=== PATIENT | female | born 1995 | race Caucasian/White ===

== ENCOUNTER 2017-01-06 13:13 | Emergency (ER) | payer SELFPAY ==
--- NOTE | 2017-01-06 14:06 | Emergency Department Report ---
Chief Complaint: Headache Stated Complaint: HEADACHE/DIZZINESS Time Seen by Provider: 01/06/17 13:55 - HPI History of Present Illness: Patient here reports that she has headache and dizziness and occasionally seen some spotting from her eyes. She said that she went to [facility], [place] 4 days ago and age are some blood work on her and that she developed a headache after they did the blood work. She never called her went back to the clinic. She does not know what her lab work was. She says she's had some headache in the past but they've been not that bad but she said this headache is located at the front of her head on both sides and she said that it's worse than the previous headaches that she had an she's having dizziness also. She has no history of migraine or treatments for her headache. She denies any head injury or trauma. She also said that she is having some pain at the back of her neck to the side and when asked, she said it feels stiff. Pain is 6 out of 10 to her head. Denies any fever or chills. Denies any sinus problems. Denies any chest pain or shortness of breath. Patient said that she has a history of anemia because she has very painful periods. She also said when she ever. She has heavy bleeding. Last menstrual cycle was 01/05/2017. She says she also has something in her uterus that is 5 cm but she doesn't know the name. Denies any vaginal bleeding or abdominal pain at present - ROS Review of Systems: All systems are negative unless stated in HPI above - Exam Vital Signs: Vital Signs 01/06/17 13:35 Temperature 98.8 F Pulse Rate 72 Respiratory 18 Rate Blood Pressure 102/48 O2 Sat by Pulse 100 Oximetry Physical Exam: Gen.: This is a 21-year-old female well-nourished well-developed in no acute distress. Head: Normocephalic/atraumatic Mini neurological exam: GCS of 15, no facial drooping noted. Speech is clear and fluid, normal gait, ambulate without any difficulties. No facial drooping. Patient is alert and oriented 3. Neck: Patient with full range of motion to neck with no C-spine tenderness. no adenopathy MSE screening note: Focused history and physical exam performed. Due to findings the following was ordered: ED Medical Decision Making - Medical Decision Making MDM: Patient screened by provider in triage area. Appropriate protocol initiated and patient to be seen in main ED by ED Disposition for MSE Condition: Stable
[2017-01-06 14:42] LABS: Anion Gap 16 mmol/L; BUN/Creatinine Ratio 15; Blood Urea Nitrogen 6 mg/dL (7-17); Calcium 8.9 mg/dL (8.4-10.2); Carbon Dioxide 25 mmol/L (22-30); Chloride 104.3 mmol/L (98-107); Glucose 85 mg/dL (65-100); Potassium 3.9 mmol/L (3.6-5.0); Sodium 141 mmol/L (137-145)
[2017-01-06 14:43] LABS: Hematocrit 33.2 % (30.3-42.9); Hemoglobin 10.3 gm/dl (10.1-14.3); Mean Corpuscular HGB Conc 31 % (30-34); Mean Corpuscular Volume 75 fl (79-97); Platelet Count 329 K/mm3 (140-440); Red Blood Count 4.43 M/mm3 (3.65-5.03); Red Cell Distribution Width 17.2 % (13.2-15.2); White Blood Count 8.9 K/mm3 (4.5-11.0)
[2017-01-06 14:48] LABS: Mean Corpuscular Hemoglobin 23 pg (28-32)
[2017-01-06 16:17] LABS: Bacteria,Urine 2+ /HPF (Negative); Bilirubin,Urine NEG (Negative); Blood,Urine SM (Negative); Ketones,Urine NEG (Negative); Leukocyte Esterase,Urine TR (Negative); Mucus,Urine 1+ /HPF; Nitrite,Urine NEG (Negative); Protein,Urine <15 mg/dL mg/dL (Negative); Urobilinogen,Urine < 2.0 mg/dL (<2.0)
--- NOTE | 2017-01-06 17:43 | Cat Scan Report ---
FINAL REPORT PROCEDURE: CT CERVICAL SPINE WO CON TECHNIQUE: Computerized tomography of the cervical spine was performed from the skull base to T1 without contrast material. HISTORY: neck pain and stiffness COMPARISON: No prior studies are available for comparison. FINDINGS: Cervical lordosis is preserved. No arthritic changes are seen. There is no subluxation. No prevertebral edema or C-spine fracture is seen. No disc herniations are seen. IMPRESSION: No significant abnormality.
--- NOTE | 2017-01-06 17:43 | Cat Scan Report ---
FINAL REPORT PROCEDURE: CT HEAD WO CONTRAST TECHNIQUE: Computerized tomography of the head was performed without contrast material. HISTORY: headache COMPARISON: No prior studies are available for comparison. FINDINGS: The visualized portions of the paranasal sinuses are clear. Mastoid air cells are clear. There is no calvarial fracture. There is no hydrocephalus. No acute intracranial hemorrhage or mass effect is seen. There is no evidence of acute CVA. IMPRESSION: No abnormalities are seen.
[2017-01-06 18:44] VITALS: BP 114/69
== END 2017-01-06 15:12 | disposition left against medical advice (07) ==
LOC: ED 13:13
DX: R51 Headache (principal); Z53.21 Procedure and treatment not carried out due to patient leaving prior to being seen by health care provider
CPT/HCPCS: 36415; 70450; 72125; 80048; 81001; 81025; 85027